=== PATIENT | male | born 1975 | race African-American/Black ===

== ENCOUNTER 2019-10-06 16:55 | Emergency (ER) | payer OTHER ==
[~2019-10-06] VITALS: Ht 177.8 cm; Wt 98.0 kg
[2019-10-06 18:01] VITALS: BP 126/82
--- NOTE | 2019-10-06 18:28 | PHYS DOC ---
Past Medical History Past Medical History: No Pertinent History (JANICE VALDEZ) Past Surgical History: Tonsillectomy (JANICE VALDEZ) Smoking Status: Never Smoker Alcohol Use: None Drug Use: None (JANICE VALDEZ) Attending Signature I have participated in the care of this patient and I have reviewed and agree with all pertinent clinical information above including history, exam, and recommendations. (TESSA BALDWIN MD) Adult General Chief Complaint Chief Complaint: FEVER HPI HPI Patient is a 44 year old M who is here with cough, congestion and fever. He did have a flu swab at his PCP office that was negative for influenza. He states the symptoms started yesterday. (JANICE VALDEZ) Review of Systems Review of Systems Constitutional: Reports fever and chills. HENT: Reports nasal congestion and sore throat. Respiratory: Denies SOB. Reports cough. Cardiovascular: Denies chest pain. GI: Denies abdominal pain, nausea, vomiting, bloody stools or diarrhea Musculoskeletal: Denies back pain or joint pain Integument: Denies rash or skin lesions Neurologic: Denies headache, focal weakness or sensory changes All other systems were reviewed and found to be within normal limits, except as documented in this note. (JANICE VALDEZ) Current Medications Current Medications Current Medications Medications (Trade) Dose Ordered Sig/Sadie Start Time Stop Time Status Last Admin Dose Admin Benzonatate (Tessalon Perle) 100 mg 1X ONCE 10/06/19 19:00 10/06/19 19:01 DC 10/06/19 19:06 100 MG Ibuprofen (Motrin) 400 mg 1X ONCE 10/06/19 19:00 10/06/19 19:01 DC 10/06/19 19:06 400 MG (TESSA BALDWIN MD) Allergies Allergies Allergies Coded Allergies Type Severity Reaction Last Updated Verified No Known Drug Allergies 03/08/15 No (TESSA BALDWIN MD) Physical Exam Physical Exam Constitutional: Well developed, well nourished, no acute distress, non-toxic appearance. HENT: Normocephalic, atraumatic, bilateral external ears normal, oropharynx moist, no oral exudates, nose normal. Mild oropharynx erythema. No exudates. Neck: Normal range of motion, no tenderness, supple, no stridor. Cardiovascular:Heart rate regular rhythm, no murmur Lungs & Thorax: Bilateral breath sounds clear to auscultation Abdomen: Bowel sounds normal, soft, no tenderness, no masses, no pulsatile masses. Skin: Warm, dry, no erythema, no rash. Back: No tenderness, no CVA tenderness. Extremities: No tenderness, no cyanosis, no clubbing, ROM intact, no edema. Neurologic: Alert and oriented X 3, normal motor function, normal sensory function, no focal deficits noted. Psychologic: Affect normal, judgement normal, mood normal. (JANICE VALDEZ) Current Patient Data Vital Signs Vital Signs Date Time Temp Pulse Resp B/P (MAP) Pulse Ox O2 Delivery O2 Flow Rate FiO2 10/06/19 18:01 100.6 107 20 126/82 (97) 96 Room Air 100.6 (TESSA BALDWIN MD) Lab Values Laboratory Tests Test 10/06/19 18:00 Influenza Type A Antigen Negative (NEGATIVE) Influenza Type B Antigen Negative (NEGATIVE) (TESSA BALDWIN MD) Lab Values Laboratory Tests Test 10/06/19 18:00 Influenza Type A Antigen Negative (NEGATIVE) Influenza Type B Antigen Negative (NEGATIVE) (JANICE VALDEZ) EKG EKG [] (JANICE VALDEZ) Radiology/Procedures Radiology/Procedures CXR: Neg (JANICE VALDEZ) Course & Med Decision Making Course & Med Decision Making Pt with negative influenza and CXR, but with classic flu like symptoms. Discussed risk/benefit of Tamiflu. He is within the 72 hour window so this was prescribed for his decision making. Encouraged ibuprofen/tylenol for fever control and extra fluids and to f/u with his PCP or return to ER with any worsening symptoms. (JANICE VALDEZ) Dragon Disclaimer Dragon Disclaimer This electronic medical record was generated, in whole or in part, using a voice recognition dictation system. (JANICE VALDEZ) Departure Departure Impression: Primary Impression: Flu-like symptoms Additional Impression: Cough Disposition: HOME, SELF-CARE Condition: STABLE Referrals: ALISHA HARDEN MD (PCP) Patient Instructions: Cough, Adult, [id number], Viral Syndrome Additional Instructions: Your flu swab was again negative for us. This can be because its a different strain or it could be the viral load is not at a level to test positive. You have classic influenza symptoms which generally run their course in about 7-10 days. Tamiflu is an option to help with the flu but studies show it lessens severity only by about 12 hours so this medication is considered optional. The main treatment is to treat fever with tylenol or ibuprofen, push extra fluids and treat the symptoms of cough and congestion. Return to your PCP or the ER if symptoms worsen. Scripts Guaifenesin/Codeine Phosphate (Codeine-Guaifen 10-100 mg/5 ml) 120 Ml Liquid 10 ML PO PRN Q4HRS PRN for cough and congestion MDD 60 Milliliter(s) for 4 Days, #240 ML 0 Refills Prov: JANICE VALDEZ 10/06/19 Oseltamivir Phosphate (TAMIFLU) 75 Mg Capsule 1 CAP PO BID, #10 CAP Prov: JANICE VALDEZ 10/06/19 Problem Qualifiers JANICE VALDEZ Oct 06, 2019 18:28 TESSA BALDWIN MD Oct 06, 2019 19:19
[2019-10-06 18:56] LABS: INFLUENZA A PATIENT NEGATIVE (NEGATIVE); INFLUENZA B PATIENT NEGATIVE (NEGATIVE)
[2019-10-06] MEDS ORDERED: BENZONATATE 100 MG CAPSULE. PO ONE (19:00)
[2019-10-06] MEDS ORDERED: IBUPROFEN 400 MG TABLET. PO ONE (19:00)
[2019-10-06] MEDS ORDERED: GUAI120L35 PO (19:02)
[2019-10-06] MEDS ORDERED: OSEL75CA PO (19:02)
--- NOTE | 2019-10-06 19:03 | RAD ---
Exam: Chest 2 views INDICATION: Productive cough TECHNIQUE: Frontal and lateral views the chest Comparisons: None FINDINGS: The cardiomediastinal silhouette and pulmonary vessels are within normal limits. The lung and pleural spaces are clear. IMPRESSION: No acute cardiopulmonary process. Electronically signed by: Sid Kelly MD (10/06/2019 7:00 PM) [id number]
== END 2019-10-06 19:08 | disposition home or self-care (01) ==
LOC: ER 16:55
DX: J02.9 Acute pharyngitis, unspecified (principal); R05 Cough; R09.81 Nasal congestion; R50.9 Fever, unspecified; Z90.89 Acquired absence of other organs
CPT/HCPCS: 71046; 87804; 99284

== ENCOUNTER → 2020-01-22 | Outpatient (CLI) | payer OTHER ==
[~2020-01-22] MED LIST: GUAI120L35 PO; OSEL75CA PO
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
== END ==
LOC: KCIC 12:30
PROVIDERS: ATTEND Nurse Practitioner Family
DX: M54.5 Low back pain (principal)
CPT/HCPCS: 72100

== ENCOUNTER → 2020-02-24 | Outpatient (CLI) | payer OTHER ==
--- NOTE | 2020-02-24 10:28 | KCIC ---
EXAM: Lumbar spine MRI without contrast. HISTORY: Lower back pain and left hip and leg pain. TECHNIQUE: Multiplanar, multisequence magnetic resonance imaging of the lumbar spine was performed without contrast. COMPARISON: 01/22/2020. FINDINGS: There is no listhesis. The vertebral bodies are normal in height. There is degenerative endplate remodeling and disc desiccation at L5-S1. There is no suspicious osseous lesion. The conus terminates at L2. At L1-L2 and L2-L3, there is no stenosis. At L3-L4, there is a left foraminal to extra foraminal disc protrusion and annular tear superimposed on a disc bulge and endplate remodeling. There is mild left facet arthropathy. There is moderate left foraminal stenosis with effacement of the exiting left L3 nerve root. There is segmental narrowing of the left lateral recess. At L4-L5, there is a disc bulge and endplate remodeling. There is minimal bilateral facet arthropathy. There is mild left greater than right foraminal stenosis with abutment of the exiting L4 nerve roots. At L5-S1, there is a broad-based posterior central disc protrusion with annular tear and minimal inferior extrusion superimposed on a disc bulge and endplate osteophytosis. There is mild to moderate bilateral foraminal stenosis with abutment of the exiting L5 nerve roots. IMPRESSION: Multilevel degenerative change involving the lumbar spine, described in detail above. This is associated with moderate left foraminal stenosis and effacement of the exiting left L3 nerve root and narrowing of the left lateral recess at L3-L4, mild left greater than right foraminal stenosis with abutment of the exiting L4 nerve roots at L4-L5, and mild to moderate bilateral foraminal stenosis with abutment of the exiting L5 nerve roots at L5-S1. Electronically signed by: Zahida Diaz MD (02/24/2020 10:25 AM) [id number]
== END ==
LOC: KCIC MRI 09:27
PROVIDERS: ATTEND Family Medicine
DX: M47.816 Spondylosis without myelopathy or radiculopathy, lumbar region (principal); M48.07 Spinal stenosis, lumbosacral region
CPT/HCPCS: 72148

== ENCOUNTER 2020-05-02 20:40 | Emergency (ER) | payer OTHER ==
[~2020-05-02] VITALS: Ht 177.8 cm; Wt 100.0 kg
[2020-05-02 20:55] VITALS: BP 146/81
[2020-05-02] MEDS ORDERED: TRAM-48 PO (21:15)
[2020-05-02] MEDS ORDERED: CYCL10TA2 PO (21:15)
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
== END 2020-05-02 21:38 | disposition home or self-care (01) ==
LOC: ER 20:40
DX: G89.11 Acute pain due to trauma (principal); M79.601 Pain in right arm; M54.5 Low back pain; Z90.89 Acquired absence of other organs; V98.8XXA Other specified transport accidents, initial encounter; Y93.89 Activity, other specified; Y92.413 State road as the place of occurrence of the external cause; Y99.8 Other external cause status
CPT/HCPCS: 99283

== ENCOUNTER → 2021-07-25 | Outpatient (CLI) | payer OTHER ==
[~2021-07-25] MED LIST changes: +CYCL10TA19 PO; +TRAM-48 PO
--- NOTE | 2021-07-25 16:30 | KCIC ---
EXAM: Cervical spine MRI without contrast. HISTORY: Paresthesia. TECHNIQUE: Multiplanar, multisequence magnetic resonance imaging of the cervical spine was performed without contrast. COMPARISON: None. FINDINGS: There is no listhesis. There is no fracture. There is no suspicious osseous lesion. No spin al cord lesion is seen. The skull base and posterior fossa are unremarkable. There is a tiny incident al retention cyst within the posterior nasopharyngeal soft tissues. At C2-C3, there is endplate remodeling. There is to [id number] right foraminal stenosis. At C3-C4, there is a disc bulge and endplate remodeling. There is mild right and vcfn-[id number] lef t foraminal stenosis. There is abutment of the ventral aspect of spinal cord and mild central canal s tenosis measuring 8.0 mm in anterior posterior dimension. At C4-C5, there is a disc bulge and endplate remodeling. There is moderate to severe right and mild-t o-moderate left foraminal stenosis. At C5-C6, there is a disc bulge and endplate remodeling. There is moderate left foraminal stenosis. At C6-C7, there is endplate remodeling. There is moderate to severe left foraminal stenosis. IMPRESSION: Multilevel degenerative change involving the cervical spine, described above. This contri butes to bilateral foraminal and central canal stenosis at the aforementioned levels. No spinal cord lesion is seen. Electronically signed by: Zahida Diaz MD (07/25/2021 4:28 PM) [id number]
== END ==
LOC: KCIC MRI 15:24
PROVIDERS: ATTEND Physician Assistant
DX: M47.812 Spondylosis without myelopathy or radiculopathy, cervical region (principal); M50.21 Other cervical disc displacement, high cervical region; M48.02 Spinal stenosis, cervical region; K11.6 Mucocele of salivary gland; R20.2 Paresthesia of skin
CPT/HCPCS: 72141

== ENCOUNTER → 2021-11-22 | Outpatient (CLI) | payer OTHER ==
--- NOTE | 2021-11-22 16:31 | RAD ---
EXAM: MRI left shoulder DATE: 11/22/2021 10:34 AM COMPARISON: None INDICATION: Reason: LEFT SHOULDER PAIN / Spl. Instructions: / History: TECHNIQUE: Multiplanar, multisequence MRI of the left shoulder was performed without contrast. FINDINGS: AC joint degenerative with associated edema and proliferative change. Trace subacromial subdeltoid bu rsal edema, bursitis. Type I acromion. No os acromiale. Supraspinatus and infraspinatus tendinosis. Partial-thickness articular sided tear of the anteriormos t fibers of the supraspinatus tendon measuring 3 mm in AP dimension, involving approximately 50 perce nt tendon thickness. Rotator cuff muscle signal and bulk is normal without fatty atrophy. Long head biceps tendon is intact. Thickening of the inferior joint capsule. No discrete labral tear. Articular cartilage is preserved. No fracture or osteonecrosis. IMPRESSION: 1. Focal partial-thickness articular sided tear of the anteriormost fibers of the supraspinatus tend on measuring 3 mm in AP dimension. 2. Thickening of the inferior joint capsule may be seen with adhesive capsulitis. 3. AC joint DJD. Electronically signed by: Zafar Hood MD (11/22/2021 4:29 PM) [id number]
== END ==
LOC: MRI 10:48
PROVIDERS: ATTEND Orthopaedic Surgery
DX: M75.112 Incomplete rotator cuff tear or rupture of left shoulder, not specified as traumatic (principal); M19.012 Primary osteoarthritis, left shoulder; M25.812 Other specified joint disorders, left shoulder
CPT/HCPCS: 73221